=== PATIENT | male | born 1980 | race Hispanic/Latino ===

== ENCOUNTER 2018-03-08 20:32 | Emergency (ER) | payer SELFPAY ==
[~2018-03-08] VITALS: Ht 160 cm; Wt 162.1 kg
[2018-03-08] MEDS ORDERED: IBUPROFEN 600 MG TAB PO STA (21:11)
[2018-03-08] MEDS ORDERED: PREDNISONE 20 MG TAB PO ONE (21:15)
[2018-03-08] MEDS ORDERED: TETANUS/DIPHTHERIA TOX ADULT 0.5 ML SYR IM ONE (21:30)
== END 2018-03-08 21:40 | disposition home or self-care (01) ==
LOC: FSED 20:32
DX: H65.01 Acute serous otitis media, right ear (principal); H92.01 Otalgia, right ear; I10 Essential (primary) hypertension; Z23 Encounter for immunization
CPT/HCPCS: 90714; 99282